=== PATIENT | female | born 1985 | race African-American/Black ===

== ENCOUNTER 2024-01-02 04:18 | Day surgery (SDC) | payer OTHER ==
[2023-12-28 14:17] VITALS: BMI 42.5
[2024-01-02] MEDS ORDERED: BUPIVACAINE HCL/PF 0.5% (5MG/ML) 10 ML VIAL ONE (07:30)
[2024-01-02 09:21] LABS: BASO % 0.6 % (0-2.0); EOS % 4.1 % (0-4.5); HEMOGLOBIN 13.7 GM/dL (10.7-15.3); LYMPH % 18.7 % (8-40); MCH 29.9 pg (25.7-33.7); MCHC 34.3 g/dl (32.0-36.0); MEAN CELL VOLUME 87.2 fl (80-96); MEAN PLT VOLUME 9.6 fl (7.5-11.1); MONO % 6.2 % (3.8-10.2); NEUT % 70.4 % (42.8-82.8); PLATELET COUNT 303 10^3/uL (134-434); RBC 4.58 M/mm3 (3.60-5.2); RDW 13.1 % (11.6-15.6); WHITE BLOOD COUNT 7.6 K/mm3 (4.0-10.0)
[2024-01-02] MEDS ORDERED: IBUPROFEN 600 MG TABLET (FP) PO PRN (12:17)
[2024-01-02] MEDS ORDERED: ACETAMINOPHEN 325 MG TABLET (FP) PO PRN (12:17)
[2024-01-02] MEDS ORDERED: PROPOFOL 20 ML ONE (12:42)
[2024-01-02] MEDS ORDERED: ROCURONIUM BROMIDE 50 MG/5 ML SYRINGE ONE (12:43)
[2024-01-02] MEDS ORDERED: DEXAMETHASONE SOD PHOSPHATE 4 MG/1 ML VIAL ONE (13:05)
[2024-01-02] MEDS ORDERED: KETOROLAC TROMETHAMINE 30 MG/1 ML VIAL ONE (13:05)
[2024-01-02] MEDS ORDERED: ONDANSETRON 4 MG/2 ML VIAL ONE ×2 (13:05→15:19)
[2024-01-02] MEDS: ceFAZolin SODIUM 1 GM VIAL IVPB ONE (13:16)
[2024-01-02] MEDS ORDERED: hydrALAZINE HCL 20 MG/ML VIAL ONE (13:52)
[2024-01-02] MEDS ORDERED: oxyCODONE HCL 5 MG TABLET PO PRN (14:59)
[2024-01-02] MEDS ORDERED: LACTATED RINGERS SOLUTION 1,000 ML IV SCH (15:00)
[2024-01-02] MEDS ORDERED: ACETAMINOPHEN INJECTION 100 ML ONE (15:53)
[2024-01-02] MEDS ORDERED: METOCLOPRAMIDE HCL INJECTION 10 MG/2 ML VIAL ONE (17:41)
[2024-01-02 17:46] VITALS: RESP 18
[2024-01-02] MEDS: METOCLOPRAMIDE HCL INJECTION 10 MG/2 ML VIAL IVPUSH ONE (17:50)
[2024-01-02 19:24] VITALS: BP 126/73; PULSE 88; TEMP 97.8
== END 2024-01-02 19:55 | disposition home or self-care (01) ==
LOC: JASU-SURG 04:18 → EDSTATUS 10:30 → JASU-SURG 19:55
PROVIDERS: ATTEND Obstetrics & Gynecology
PROC: 0UT1FZZ Resection of Left Ovary, Via Natural or Artificial Opening With Percutaneous Endoscopic Assistance (ICD-10-PCS; 2024-01-02)
PROC: 0UPD4HZ Removal of Contraceptive Device from Uterus and Cervix, Percutaneous Endoscopic Approach (ICD-10-PCS; 2024-01-02)
PROC: 0UT6FZZ Resection of Left Fallopian Tube, Via Natural or Artificial Opening With Percutaneous Endoscopic Assistance (ICD-10-PCS; principal; 2024-01-02 11:00)
DX: D27.1 Benign neoplasm of left ovary (principal)
CPT/HCPCS: 36415; 81025; 85025; 86850; 86900; 86901; 88300-TC; 88307-TC; 94760; J0131